=== PATIENT | male | born 1975 | race Caucasian/White ===

== ENCOUNTER 2018-06-23 21:18 | Emergency (ER) | payer OTHER, SELFPAY ==
[2018-06-23] MEDS ORDERED: diphenhydrAMINE 50 MG/ML VIAL ONE (22:37)
[2018-06-23] MEDS ORDERED: Metoclopramide HCl 10 MG/2 ML VIAL ONE (22:37)
[2018-06-23] MEDS ORDERED: Ketorolac Tromethamine 30 MG/ML VIAL ONE (22:37)
--- NOTE | 2018-06-23 22:40 | CT ---
NONCONTRAST CT HEAD 06/23/18 HISTORY: Headache and blurry vision. Dizziness. COMPARISON: 11/11/15. FINDINGS: There is no evidence of an acute infarction, hemorrhage, mass effect, or midline shift. The ventricul ar system is normal in size, shape, and position. There is calcification seen along the inner table o f the left occipital bone which was also present on the prior study and may represent a dural based c alcification. The visualized paranasal sinuses and mastoid air cells are clear. Calvarial structures are intact. IMPRESSION: No acute intracranial abnormalities demonstrated. POS: [facility]
[2018-06-23 22:57] LABS: #Basophils 0.1 thou/uL (0.0-0.2); #Eosinphils 0.3 thou/uL (0.0-0.7); #Lymphocytes 2.8 thou/uL (1.20-3.40); #Monocytes 0.7 thou/uL (0.11-0.59); #Neutrophils 6.2 thou/uL (1.40-6.50); %Basophils 0.5 % (0.0-1.0); %Eosinophils 2.8 % (0.0-10.0); %Lymphocytes 27.4 % (21.0-51.0); %Monocytes 7.1 % (0.0-10.0); %Neutrophils 62.1 % (42.0-75.0); Hemoglobin 15.2 g/dL (14.0-18.0); Mean Corpuscular HGB CONC 34.5 g/dL (32.0-36.0); Mean Corpuscular Hemoglobin 31.1 pg (27.0-31.0); Mean Platelet Volume 10.6 fL (7.4-10.4); Platelet Count 171 thou/uL (130-400); RBC Distribution Width 11.8 % (11.5-14.5); Red Blood Cell (RBC) Count 4.91 mill/uL (4.70-6.10)
[2018-06-23 23:19] LABS: ALT (SGPT) 42 U/L (8-55); AST (SGOT) 23 U/L (5-34); Albumin 4.4 g/dL (3.5-5.0); Alkaline Phosphatase 77 U/L (40-150); Anion Gap 13 mmol/L (10-20); BUN (Urea Nitrogen) 9 mg/dL (8.9-20.6); Bilirubin, Total 0.3 mg/dL (0.2-1.2); Calc. Creatinine Clearance 0 mL/min (70-130); Calcium 9.7 mg/dL (7.8-10.44); Carbon Dioxide 25 mmol/L (22-29); Chloride 104 mmol/L (98-107); Estimated GFR-MDRD 76; Globulin 2.8 g/dL (2.4-3.5); Glucose 82 mg/dL (70-105); Potassium 3.8 mmol/L (3.5-5.1); Protein, Total 7.2 g/dL (6.0-8.3); Sodium 138 mmol/L (136-145)
== END 2018-06-24 00:25 | disposition home or self-care (01) ==
LOC: ERS 21:18
DX: R51 Headache (principal); I10 Essential (primary) hypertension; F17.210 Nicotine dependence, cigarettes, uncomplicated
CPT/HCPCS: 70450; 80053; 82375; 85025; 96365; 96375; J1200; J1885; J2765